=== PATIENT | female | born 1965 | race Caucasian/White ===

== ENCOUNTER 2017-08-25 15:23 | Emergency (ER) | payer OTHER ==
[2017-08-25 15:34] VITALS: PULSE 73; RESP 16; TEMP 97.9; O2SAT 95
--- NOTE | 2017-08-25 16:36 | EDPHY ---
HPI/HX/ROS/PE/MDM Narrative: CHIEF COMPLAINT: Rule out DVT HPI: This patient is a 52 year old female arriving at the request of her neurosurgeon , Dr. Kemp, to rule out possible DVT. The patient underwent lumbar fusion . On 08/19/17, six days ago, she began having right-sided leg pain. Her discomfort is localized to the back of her right knee, occasionally radiating down towards her ankle or up into her thigh. She denies chest pain or shortness of breath. No history of clotting. No further complaints. REVIEW OF SYSTEMS: Aside from elements discussed in the HPI, a comprehensive 10-point review of systems was reviewed and is negative. PMH: S/p tumor resection/discectomy/lumbar fusion. Hysterectomy. SOCIAL HISTORY: . at bedside. Lives in [place]. PHYSICAL EXAM: General:Patient is alert, in no acute distress. ENT:Eyes are normal to inspection. ENT inspection normal. Neck: Normal inspection. Full range of motion. Respiratory:No respiratory distress. Breath sounds normal bilaterally. Cardiovascular: Regular rate and rhythm. Strong peripheral pulses. Normal cap refill. Back: Normal to inspection. No tenderness to palpation. Skin: Normal color. No rash. Warm and dry. Extremities: Normal appearance. Full range of motion. Neuro: Oriented x3. Normal motor function. Normal sensory function. ED Course: 52 y/o female s/p lumbar fusion 08/15/17 presents at the request of her neurosurgeon to rule out right leg DVT. Exam is unremarkable. Plan for US right leg. Spoke with Dr. Ivory, radiologist. US right leg negative for DVT. Discussed imaging results. The patient is relieved and will follow up with her neurosurgeon for further evaluation. Return precautions discussed. She is comfortable with this plan. - Data Points Imaging: Discussed imaging studies w/ freight caller Radiologist General Time Seen by Provider: 08/25/17 15:57 Initial Vital Signs: Initial Vital Signs Temperature (C) 36.6 C 08/25/17 15:31 Heart Rate 73 08/25/17 15:31 Respiratory Rate 16 08/25/17 15:31 O2 Sat (%) 95 08/25/17 15:31 O2 Delivery Mode Room Air Allergies/Adverse Reactions: No Known Allergies Allergy (Unverified 08/25/17 15:29) Home Medications: Medication Instructions Recorded Carvedilol 08/25/17 DULoxetine 08/25/17 Lisinopril 08/25/17 Omeprazole 08/25/17 Oxycodone HCl 08/25/17 Robaxin Inj (*) 08/25/17 Singulair 08/25/17 Departure - Departure Disposition: Home, Routine, Self-Care Clinical Impression: Leg pain Qualifiers: Laterality: right Qualified Code(s): M79.604 - Pain in right leg Condition: Good Instructions: Leg Pain (ED) Additional Instructions: 1. Follow up with Dr. Kemp as scheduled. 2. There was no evidence of blood clot on your leg ultrasound today. 3. Return to the Emergency Department for fever, chest pain, shortness of breath , increasing pain or other worsening of condition. Referrals: Abhay Kemp MD [Primary Care Provider] - As per Instructions Report Scribed for: Niles Ling Report Scribed by: Cari Harris Date of Report: 08/25/17 Time of Report: 16:41 Physician Review and Approval Statement: Portions of this note were transcribed by an ED scribe. I personally performed the history, physical exam, and medical decision making; and confirm the accuracy of the information in the transcribed note.
== END 2017-08-25 16:47 | disposition home or self-care (01) ==
DX: M79.604 Pain in right leg (principal)